=== PATIENT | female | born 1970 | race Caucasian/White ===

== ENCOUNTER → 2018-05-15 | Outpatient (CLI) | payer BC ==
--- NOTE | 2018-05-15 13:57 | RADIOLOGY IMAGING REPORT ---
[place]AC[place] [facility] [place] NAME: Delma Antoine : 1970 MR: [id number] V: [id number] EXAM DATE: [id number] ORDERING PHYSICIAN: MARCIA FULLER TECHNOLOGIST: [facility] Patient: Delma Antoine : 1970 Visit/Account:[id number] Date of Sevice: 05/15/2018 Exam type: ARTERIAL RENAL DUPLEX DOPPLER History: Hypertension Comparison: CT abdomen pelvis October 19, 2016. Findings: The right kidney measures 11 point to 3 x 4.2 x 6 cm. The left kidney measures 11.1 x 5 x 5.9 cm. T here are two small cyst upper pole of the left kidney largest measuring 7.6 mm Peak systolic velocity of the right renal arteries are as follows. Velocities are reported in centim eters per second: Superior Pole arcuate artery 23.7, resistive index 0.45 Superior pole interlobar artery 31.0, resistive index 0.51 Superior pole segmental artery 58.2, resistive index 0.57 Mid arcuate artery 41.3, resistive index 0.48 Mid interlobar artery 46.1, resistive index 0.55 Mid segmental artery 59.2, resistive index 0.52 Inferior Pole arcuate artery 35.1, resistive index 0.49 Inferior interlobar artery 29.9, resistive index 0.54 Inferior Pole segmental artery 46.8, resistive index 0.51 Distal right renal artery 137, mid right renal artery 63.1, proximal right renal artery 64.3 resistiv e index 0.62 Renal artery ratio on the right 1.41 at the kidney and 0.66 at the aorta Peak systolic velocities in the left renal arteries are as follows. Velocities are reported in centi meters per second. Superior Pole arcuate artery 22, resistive index 0.55 Superior pole interlobar artery 32.0, resistive index 0.52 Superior pole segmental artery 38.2, resistive index 0.52 Mid arcuate artery 24.4, resistive index 0.52 Mid interlobar artery 52.6, resistive index 0.56 Mid segmental artery 51.6, resistive index 0.59 Inferior Pole arcuate artery 22.7, resistive index 0.55 Inferior Pole interlobar artery 32, resistive index 0.2 Inferior Pole segmental artery 42.7, resistive index 0.6 Distal left renal artery 103, proximal left renal artery 74, resistive index 0.69 Left renal artery ratio 1.06 at the kidney and 0.76 at the aorta. IMPRESSION: No elevated peak systolic velocities are identified in the renal arterial trees bilaterally No elevated resistive indices identified 1. Report Dictated By: Yasmin Hernandez MD at 05/15/2018 10:55 AM Report E-Signed By: Yasmin Hernandez MD at 05/15/2018 1:53 PM WSN:[email or web address]
== END ==
LOC: US 01:30
PROVIDERS: ATTEND Internal Medicine Cardiovascular Disease
DX: I10 Essential (primary) hypertension (principal)